=== PATIENT | male | born 1980 | race Caucasian/White ===

== ENCOUNTER 2023-02-19 22:38 | Emergency (ER) | payer OTHER ==
[~2023-02-19] VITALS: Ht 195.6 cm; Wt 113.4 kg
[~2023-02-19 22:38] MED LIST: ALBU90OI INH; CLIN150 PO; CYCL10 PO; DIPATR PO; HYDACE5 PO; IBUP800 PO; NAPR500 PO; NAPR550 PO; OXYACE5T PO; PRED10 PO; PRODEXEL PO; PROM25 PO; Prednisone20 MG PO; RXCYCL10 PO; RXNAPNA550 PO; TAMS.4ER PO
[2023-02-20] MEDS ORDERED: ERYT.5TO BOTHEYES (01:04)
[2023-02-20] MEDS ORDERED: EYE ALLERGY IT2.5 ML BOTHEYES (01:04)
== END 2023-02-20 01:36 | disposition home or self-care (01) ==
LOC: ER 22:38
DX: S05.01XA Injury of conjunctiva and corneal abrasion without foreign body, right eye, initial encounter (principal); S05.02XA Injury of conjunctiva and corneal abrasion without foreign body, left eye, initial encounter; H10.13 Acute atopic conjunctivitis, bilateral; Z88.0 Allergy status to penicillin; X58.XXXA Exposure to other specified factors, initial encounter
CPT/HCPCS: 99283; A9270; J7030